=== PATIENT | male | born 1975 | race American Indian/Alaskan Native ===

== ENCOUNTER 2016-09-04 19:04 | Emergency (ER) | payer SELFPAY ==
[2016-09-04 19:23] VITALS: BP 154/98
[2016-09-04 19:39] LABS: Basophils % (Auto) 0.7 % (0.0-1.8); Eosinophils % (Auto) 3.3 % (0.0-4.3); Hematocrit 42.6 % (35.5-45.6); Hemoglobin 14.5 gm/dl (11.8-15.2); Mean Corpuscular HGB Conc 34 % (32-34); Mean Corpuscular Hemoglobin 29 pg (28-32); Mean Corpuscular Volume 84 fl (84-94); Platelet Count 234 K/mm3 (140-440); Red Blood Count 5.06 M/mm3 (3.65-5.03); Red Cell Distribution Width 13.3 % (13.2-15.2); White Blood Count 9.4 K/mm3 (4.5-11.0)
[2016-09-04 19:48] LABS: INR 1.03 (0.87-1.13)
[2016-09-04 19:49] LABS: Partial Thromboplastin Time 29.8 Sec. (24.2-36.6)
[2016-09-04 20:02] LABS: Anion Gap 17 mmol/L; BUN/Creatinine Ratio 11.25; Blood Urea Nitrogen 9 mg/dL (9-20); Calcium 9.2 mg/dL (8.4-10.2); Carbon Dioxide 25 mmol/L (22-30); Chloride 100.2 mmol/L (98-107); Glucose 160 mg/dL (75-100); Potassium 3.5 mmol/L (3.6-5.0); Sodium 139 mmol/L (137-145)
--- NOTE | 2016-09-04 20:03 | Cat Scan Report ---
FINAL REPORT PROCEDURE: CT HEAD/BRAIN WO CON TECHNIQUE: Computerized tomography of the head was performed without contrast material. HISTORY: neuro deficits \T\lt; 6hrs or sx present upon awakening COMPARISON: No prior studies are available for comparison. FINDINGS: Skull and scalp: Normal. Paranasal sinuses: Lobular mucous retention cysts mucosal thickening left greater than right maxillary sinus. Ventricles and subarachnoid spaces: Normal. Cerebrum: No evidence of hemorrhage, acute infarction or mass . Cerebellum and brainstem: No evidence of hemorrhage, acute infarction or mass. Vasculature: No hyperdense MCA sign.. Comments: None. IMPRESSION: No evidence of acute ischemic change suspected at this time. If symptoms and or concern persist consider followup MRI.
--- NOTE | 2016-09-05 10:30 | ED Elopement Review ---
ED Pt Elopement review - Results review Lab results: Laboratory Tests 09/04/16 09/04/16 09/04/16 19:27 19:27 19:27 WBC 9.4 RBC 5.06 H Hgb 14.5 Hct 42.6 MCV 84 MCH 29 MCHC 34 RDW 13.3 Plt Count 234 Lymph % (Auto) 27.6 [place] % (Auto) 3.8 Eos % (Auto) 3.3 Baso % (Auto) 0.7 Lymph # 2.6 [place] # 0.4 Eos # 0.3 Baso # 0.1 Seg Neutrophils % 64.6 Seg Neutrophils # 6.1 PT 13.4 INR 1.03 APTT 29.8 Thrombin Time Sodium 139 Potassium 3.5 L Chloride 100.2 Carbon Dioxide 25 Anion Gap 17 BUN 9 Creatinine 0.8 Estimated GFR > 60 BUN/Creatinine Ratio 11.25 Glucose 160 H Calcium 9.2 Troponin T < 0.010 09/04/16 19:27 WBC RBC Hgb Hct MCV MCH MCHC RDW Plt Count Lymph % (Auto) [place] % (Auto) Eos % (Auto) Baso % (Auto) Lymph # [place] # Eos # Baso # Seg Neutrophils % Seg Neutrophils # PT INR APTT Thrombin Time 15.8 Sodium Potassium Chloride Carbon Dioxide Anion Gap BUN Creatinine Estimated GFR BUN/Creatinine Ratio Glucose Calcium Troponin T - Call Back decision Pt Call Back Decision: No action required
== END 2016-09-05 04:38 | disposition left against medical advice (07) ==
LOC: ED 19:04
DX: R07.9 Chest pain, unspecified (principal); Z53.21 Procedure and treatment not carried out due to patient leaving prior to being seen by health care provider
CPT/HCPCS: 36415; 70450; 80048; 84484; 85025; 85610; 85670; 85730; 93005; 93010